=== PATIENT | female | born 1995 | race Two or more races ===

== ENCOUNTER 2021-06-29 04:41 | Inpatient (IN) | payer BC ==
[~2021-06-29] VITALS: Ht 165.1 cm; Wt 54.4 kg
[2021-06-30] MEDS ORDERED: PERCOCET 5-3251 EACH PO (11:01)
== END 2021-06-30 13:38 | disposition home or self-care (01) | DRG 343 ==
LOC: ER 04:41 → SEC-K 10:40 → O/R 14:24 → SURH 19:12
PROVIDERS: ADMIT Surgery; ATTEND Surgery
PROC: 0DTJ4ZZ Resection of Appendix, Percutaneous Endoscopic Approach (ICD-10-PCS; principal; 2021-06-29 11:45)
DX: K35.80 Unspecified acute appendicitis (principal)